=== PATIENT | male | born 1955 | race Caucasian/White ===

== ENCOUNTER 2020-12-14 09:59 | Emergency (ER) | payer OTHER | END 2020-12-14 11:17 | disposition home or self-care (01) | LOC: JVIRT 09:59 | DX: Z11.52 Encounter for screening for COVID-19 (principal) | CPT/HCPCS: C9803; G2012-GT; U0003 ==

== ENCOUNTER 2021-05-13 10:32 | Emergency (ER) | payer OTHER ==
[2021-05-13] MEDS ORDERED: DIPHTH,PERTUSS(ACELL),TET 0.5 ML DISP.SYRIN IM ONE ×2 (10:40→10:58)
[2021-05-13 10:57] VITALS: BP 170/100; PULSE 111; TEMP 99.4; BMI 25.0
== END 2021-05-13 12:48 | disposition home or self-care (01) ==
LOC: FER 10:32
PROC: 3E0234Z Introduction of Serum, Toxoid and Vaccine into Muscle, Percutaneous Approach (ICD-10-PCS; principal; 2021-05-13)
DX: S61.210A Laceration without foreign body of right index finger without damage to nail, initial encounter (principal); S60.121A Contusion of right index finger with damage to nail, initial encounter; S62.600A Fracture of unspecified phalanx of right index finger, initial encounter for closed fracture
CPT/HCPCS: 73130-TC-RT-FY; 90715; 99284-25

== ENCOUNTER 2025-02-01 09:17 | Emergency (ER) | payer OTHER ==
[2025-02-01 09:31] VITALS: TEMP 98.9; BMI 26.1
[2025-02-01 10:51] LABS: PH,URINE 5.5 (5.0-8.0); URINE APPEARANCE CLEAR; URINE BILIRUBIN NEGATIVE (NEGATIVE); URINE COLOR YELLOW; URINE GLUCOSE (UA) NEGATIVE (NEGATIVE); URINE KETONE TRACE (NEGATIVE); URINE LEUK ESTERASE NEGATIVE (NEGATIVE); URINE NITRITE NEGATIVE (NEGATIVE); URINE PROTEIN 1+ (NEGATIVE); URINE UROBILINOGEN 0.2 mg/dL (0.2-1.0)
[2025-02-01 10:56] LABS: INR 1.06 (0.83-1.09); PROTHROMBIN TIME (PATIENT) 11.7 SEC (9.7-13.0)
[2025-02-01 10:59] LABS: ACTIVATED PTT 28.5 SECONDS (25.2-36.5)
[2025-02-01 11:03] LABS: URINE RBC 9 /uL (0-23.9); URINE WBC 6 /uL (0-25.8)
[2025-02-01 11:04] LABS: EPI CELLS 2 /uL (0-25.1); HYALINE CASTS 0 /uL (0-3.1); URINE BACTERIA PRESENT /uL (0-1359)
[2025-02-01 11:19] LABS: POTASSIUM 4.5 mmol/L (3.5-5.1)
[2025-02-01 11:21] LABS: CALCIUM 9.4 mg/dL (8.5-10.1)
[2025-02-01 11:22] LABS: ALBUMIN 3.9 g/dl (3.4-5.0); BLOOD UREA NITROGEN 11.4 mg/dL (7-18)
[2025-02-01 11:25] LABS: CREATININE 1.1 mg/dL (0.55-1.3)
[2025-02-01 11:27] LABS: BILIRUBIN,TOTAL 1.2 mg/dL (0.2-1); TOT PROT 8.1 g/dl (6.4-8.2)
[2025-02-01 11:29] LABS: BASOPHILS # 0.08 x10^3/uL (0.01-0.08); EOSINOPHIL % 0.1 % (0.8-7.0); EOSINOPHILS # 0.01 x10^3/uL (0.04-0.54); HEMATOCRIT 46.6 % (40.1-51.0); HEMOGLOBIN 15.1 g/dL (13.7-17.5); MCHC 32.4 g/dl (32.3-36.5); MEAN CELL VOLUME 91.7 fl (79.0-92.2); MEAN PLT VOLUME 11.3 fl (9.4-12.4); MONOCYTE # 0.76 x10^3/uL (0.30-0.82); MONOCYTE % 4.9 % (5.3-12.2); PLATELET COUNT 346 x10^3/uL (163-337); RDW 12.4 % (12.2-16.4)
[2025-02-01 12:58] VITALS: BP 151/76; PULSE 94; RESP 16
== END 2025-02-01 14:21 | disposition home or self-care (01) ==
LOC: JER 09:17
DX: R10.31 Right lower quadrant pain (principal); R30.0 Dysuria; R50.9 Fever, unspecified; R82.90 Unspecified abnormal findings in urine; D72.829 Elevated white blood cell count, unspecified
CPT/HCPCS: 36415; 74177-TC; 80053; 81003; 85025; 85610; 85730; 86850; 86900; 86901; 87086; 99285-25